=== PATIENT | female | born 1985 | race Caucasian/White ===

== ENCOUNTER 2019-12-12 14:57 | Emergency (ER) | payer BC ==
[~2019-12-12] VITALS: Ht 165.1 cm; Wt 112.9 kg
[2019-12-12 15:04] VITALS: BP_SYST 110
--- NOTE | 2019-12-12 15:11 | NUR ---
Patient to ER bed 4 to [facility] for evaluation. Side rails up. Report given to JOEL Lamar. Addendum: 12/12/19 at 1514 by SUSANA Patient was placed in bed 6.
--- NOTE | 2019-12-12 15:18 | NUR ---
DR KENNEDY IS AT THE BEDSIDE
--- NOTE | 2019-12-12 15:25 | NUR ---
PT REPORTS ABD PAIN FOR ABOUT 2 WEEKS, DESCRIBES SHARP AND RADIATING FROM BELLY BUTTON TO RIGHT GROIN AREA. HAD BARIATRIC SLEEVE SURGURY 11/24/2019. V/S STABLE AOX3
[2019-12-12] MEDS ORDERED: KETOROLAC TROMETHAMINE 60 MG/2 ML VIAL IM ONE (15:30)
--- NOTE | 2019-12-12 15:30 | NUR ---
PT GIVEN URINE CUP TO PROVIDE URINE SAMPLE
--- NOTE | 2019-12-12 15:45 | NUR ---
medicated w/ Toradol IM per MD order. Will reassess
--- NOTE | 2019-12-12 16:00 | NUR ---
Patient transported to radiology via , accompanied by ROOFING LAYER.
[2019-12-12 16:48] LABS: CALCIUM 9.4 mg/dL (8.4-11.0); CREATININE 0.52 mg/dL (0.55-1.30); POTASSIUM 3.5 mmol/L (3.5-5.1)
[2019-12-12 16:52] LABS: BASOPHILS % (AUTO) 0.8 % (0.0-2.0); EOSINOPHILS # (AUTO) 0.2 K/uL (0.0-0.4); EOSINOPHILS % (AUTO) 2.8 % (0.0-4.0); HEMATOCRIT 38.2 % (36-48); HEMOGLOBIN 12.4 g/dL (12.0-16.0); LYMPHOCYTES # (AUTO) 2.1 K/uL (1.0-5.5); MEAN CORPUSCULAR HEMOGLOBIN 28 pg (27-31); MEAN CORPUSCULAR HGB CONC 32 % (32-36); MEAN CORPUSCULAR VOLUME 87 fL (79.0-98.0); MONOCYTES # (AUTO) 0.6 K/uL (0.0-1.0); MONOCYTES % (AUTO) 9.1 % (1.7-9.3); NEUTROPHILS # (AUTO) 3.6 K/uL (1.8-7.7); NEUTROPHILS % (AUTO) 55.3 % (40.0-70.0); PLATELET COUNT (AUTO) 238 K/uL (130-430); RED BLOOD CELL COUNT(AUTO) 4.38 MIL/uL (4.2-6.2); RED CELL DISTRIBUTION WIDTH 13.9 % (9.0-15.0); WHITE BLOOD COUNT (AUTO) 6.5 K/uL (4.8-10.8)
[2019-12-12 16:54] LABS: ALBUMIN 3.4 g/dL (3.4-4.8); TOTAL BILIRUBIN 0.4 mg/dL (0.0-1.0)
--- NOTE | 2019-12-12 16:57 | NUR ---
Patient resting quietly. No acute distress noted. Vital signs within normal range.
--- NOTE | 2019-12-12 17:20 | NUR ---
Patient given written and verbal discharge instructions and verbalizes understanding. ER MD discussed with patient the results and treatment provided. Patient in stable condition. ID arm band removed. Rx of GOLYTLEY given. Patient educated on pain management and to follow up with PMD. Pain Scale 0/10. Opportunity for questions provided and answered. Medication side effect fact sheet provided.
[2019-12-12 17:26] VITALS: BP_SYST 120
== END 2019-12-12 17:26 | disposition home or self-care (01) ==
LOC: SED 14:57
DX: K59.00 Constipation, unspecified (principal); R10.33 Periumbilical pain; Z88.6 Allergy status to analgesic agent; Z90.49 Acquired absence of other specified parts of digestive tract
CPT/HCPCS: 36415; 74176; 80053; 81002; 81025; 83690; 85025; 96372; 99284; J1885